=== PATIENT | male | born 1965 | race African-American/Black ===

== ENCOUNTER 2020-12-14 21:24 | Emergency (ER) | payer MEDICAID ==
[~2020-12-14] VITALS: Ht 175.3 cm; Wt 95.3 kg
[2020-12-14 21:29] VITALS: BP 124/96
[2020-12-14] MEDS ORDERED: clonazePAM 1 MG TABLET PO ONE (22:30)
[2020-12-14] MEDS ORDERED: risperiDONE 0.25 MG TABLET PO ONE (22:30)
[2020-12-14] MEDS ORDERED: clonazePAM 0.5 MG TABLET ONE (22:37)
[2020-12-14] MEDS ORDERED: risperiDONE 1 MG TABLET ONE (22:37)
[2020-12-14] MEDS ORDERED: CHLO10TA5 GT (22:50)
[2020-12-14] MEDS ORDERED: RISP1TAB7 PO (22:50)
[2020-12-14] MEDS ORDERED: CLON0.5T PO (22:50)
== END 2020-12-14 23:58 | disposition home or self-care (01) ==
LOC: ER 21:26
DX: Z76.0 Encounter for issue of repeat prescription (principal); F41.9 Anxiety disorder, unspecified; F20.9 Schizophrenia, unspecified; F31.9 Bipolar disorder, unspecified